=== PATIENT | male | born 1975 | race Two or more races ===

== ENCOUNTER 2018-04-07 20:02 | Emergency (ER) | payer SELFPAY ==
[~2018-04-07] VITALS: Ht 177.8 cm; Wt 84.4 kg
[2018-04-07] MEDS ORDERED: LORazepam Inj 2mg/ml 1ml IM ONE ×3 (20:30→21:15)
[2018-04-07 21:16] VITALS: BP 152/87
[2018-04-07 21:21] VITALS: BP 152/87
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
== END 2018-04-07 21:30 | disposition home or self-care (01) ==
LOC: EDBD 20:02 → EMR 21:25
DX: F41.9 Anxiety disorder, unspecified (principal); F32.9 Major depressive disorder, single episode, unspecified; R03.0 Elevated blood-pressure reading, without diagnosis of hypertension
CPT/HCPCS: 96372; 99284